=== PATIENT | female | born 1955 | race Caucasian/White ===

== ENCOUNTER 2016-08-26 07:59 | Day surgery (SDC) | payer OTHER ==
[~2016-08-26] VITALS: Ht 168.9 cm; Wt 64.4 kg
[~2016-08-26 07:59] MED LIST: CHOL100043 PO; FLUT9.9S NS; IMIP50TA4 PO; KLO5T PO; LEVO112T23 PO; LOVA20TA PO; METO-272 PO; Sodium Chloride LOK Flush 10 mL Syringe IV PRN; fentaNYL-PF 50 mCg/mL 2 mL Inj IVPUSH PRN
[2016-08-26 08:17] VITALS: BP 146/98; PULSE 86; RESP 17; O2SAT 99
[2016-08-26] MEDS: 0.9% Sodium Chloride 1,000 ML IV SCH ×2 (08:35→09:44)
[2016-08-26 09:31] VITALS: BP 130/75; PULSE 76; RESP 16; O2SAT 100
[2016-08-26 09:41] VITALS: BP 128/72; PULSE 75; RESP 16; O2SAT 99
--- NOTE | 2016-08-26 09:49 | ENDO ---
[address] [address] ENDOSCOPY PROCEDURE PATIENT: DIANNE CLEMENTS : 1955 MR#: [id number] ADMIT: 08/26/2016 JOB ID: [id number] DATE OF SERVICE: 08/26/2016 PREOPERATIVE DIAGNOSES: 1. Personal history of serrated colon polyps. 2. Family history of colon cancer. POSTOPERATIVE DIAGNOSES: 1. Two small sigmoid colon polyps. 2. Small rectal polyp. OPERATION: 1. Colonoscopy to cecum with snare polypectomy with cautery x2. 2. Cold forceps polypectomy x1. SURGEON: Krunal Guerra MD. INDICATIONS: A 61-year-old female who in 2007 had a colonoscopy showing three small serrated polyps in the sigmoid colon. She returns for screening colonoscopy. FINDINGS: She had a fair prep. There is scattered stool throughout the colon that required extensive irrigation and aspiration. The scope was advanced to the cecum. It was withdrawn over 18 minutes and 36 seconds. Three polyps were identified all distally. Two in the sigmoid colon, they were both small, one about 3-4 mm and the other 2-3 mm. They were both removed with snare and cautery. The smallest one essentially was obliterated with cautery. The larger one was submitted to pathology. In the rectum there was another 2-3 mm polyp that was retrieved with cold forceps. She had no evidence of diverticulosis. She had no identified polyps proximal to the sigmoid colon. PROCEDURE: The procedure and sedation plan was discussed with the patient and nursing staff and procedural time out was held. She received 8 mg of Versed and 200 mcg of fentanyl. A digital rectal exam was performed. The Olympus PCF H 180 AL video colonoscope was passed transanally, advanced to the cecum, withdrawn over 18 minutes and 36 seconds with results as stated above. IMPRESSION: 1. Two small sigmoid colon polyps and one small rectal polyp. 2. Family history of colon cancer. RECOMMENDATIONS: Repeat colonoscopy in five years. We will call her with results of her pathology report.
--- NOTE | 2016-08-27 15:13 | PATH ---
SURGICAL PATHOLOGY Attending Physician:Billy Cotto CASE STATUS: Signed Out PATIENT NAME: DIANNE CELMENTS PID: [id number] : 1955 DATE COLLECTED:08/26/2016 16:18 SPECIMEN: 1: Colon, Biopsy 2: Rectum, Biopsy CLINICAL HISTORY: A: SIGMOID POLYP B: RECTAL POLYP FINAL DIAGNOSIS: 1.SIGMOID COLON POLYP: HYPERPLASTIC POLYP. 2.RECTAL POLYP: HYPERPLASTIC POLYP. ICD10 CODE K63.5 K62.1 GROSS DESCRIPTION: The specimen is received in two formalin filled containers labeled with the patient's name. 1). The specimen is sublabeled "sigmoid polyp" and consists of a 0.4 x 0.3 x 0.3 CM portion of tissue which is entirely submitted in cassette 1A. 2). The specimen is sublabeled "rectal polyp" and consists of a 0.3 x 0.3 x 0.3 CM portion of tissue which is entirely submitted in cassette 2A. 08/26/2016 DAC MICRO DESCRIPTION: See diagnosis. ICD-9 CODES: CPT CODES: 1: 13800 2: 02722 Electronically Signed Out Alix Rocha MD [facility] [address], [place] [address] Technical component performed at [facility], [address] [place] [address] Ave[address], [place], [address]
== END 2016-08-26 23:59 | disposition home or self-care (01) ==
LOC: END 07:59
PROVIDERS: ATTEND Surgery
DX: Z12.11 Encounter for screening for malignant neoplasm of colon (principal); K62.1 Rectal polyp; K63.5 Polyp of colon; Z86.010 Personal history of colon polyps; Z80.0 Family history of malignant neoplasm of digestive organs
CPT/HCPCS: 45380; 45385; J2250; J7030